=== PATIENT | male | born 1995 | race Caucasian/White ===

== ENCOUNTER 2020-08-11 18:53 | Emergency (ER) | payer BC ==
[2020-08-11 20:56] LABS: SARS-COV-2 RT PCR NEGATIVE (NEGATIVE)
--- NOTE | 2020-08-11 21:11 | RAD REPORT ---
EXAM DESCRIPTION: RAD - Chest Pa And Lat (2 Views) - 08/11/2020 8:24 pm CLINICAL HISTORY: Chest pain;Cough COMPARISON: None TECHNIQUE: Frontal and lateral views of the chest were obtained. FINDINGS: The lungs are hyperexpanded with flattened diaphragm and increased retrosternal space. Sca ttered fibrotic changes seen. No mass or acute infiltrates seen. Sarah are not outside of normal range . Heart size is normal and central vasculature is within normal limits. No pleural effusion or pne umothorax seen. No acute bony finding noted. No aortic abnormality. IMPRESSION: Hyper expanded lung mcneal with no acute cardiopulmonary finding.
[2020-08-11 21:54] LABS: Basophils % 0.9 % (0-1.3); Hematocrit 41.9 % (39.6-49.0); Lymphocytes % 34.4 % (15.3-44.8); RBC Red Blood Cell Count 4.55 M/uL (4.33-5.43)
[2020-08-11 22:07] LABS: Potassium 4.3 mmol/L (3.5-5.1)
[2020-08-11 22:16] LABS: Protime INR 1.05
--- NOTE | 2020-08-11 22:30 | EDPHYS ---
Physician Documentation [facility] Name: Harjit Berry Age: 25 yrs Sex: Male : 1995 Arrival Date: 08/11/2020 Time: 18:57 Bed 20 Private MD: ED Physician Chava Anderson HPI: 08/11 21:19 This 25 yrs old Male presents to ER via Ambulatory with complaints of Chest rn Pressure, cough up blood. 21:19 The patient or guardian reports chest pain that is located primarily in the anterior rn chest wall. The pain does not radiate. Associated signs and symptoms: Pertinent positives: cough, Pertinent negatives: abdominal pain, dizziness, headache, near syncope, palpitations, shortness of breath, syncope, vomiting. The chest pain is described as a pressure. Duration: The patient or guardian reports a single episode. Modifying factors: The symptoms are alleviated by nothing. the symptoms are aggravated by nothing. Severity of pain: At its worst the pain was moderate in the emergency department the pain has improved. The patient has not experienced similar symptoms in the past. The patient has not recently seen a physician. Reports just finished eating dinner, doesn't recall eating anything that he thinks could have irritated his throat, no choking episode, then coughed up phlegm with small amount of blood in it. + smoker. Now feels better, no sob. No hx of dvt/PE. No recent trauma. Doesn't feel ill, no fever. . 21:19 Took a nap in waiting room and states feels better, is hungry again.. rn Historical: - Allergies: 19:32 No Known Allergies; ca1 - Home Meds: 19:32 None [Active]; ca1 - PMHx: 19:32 None; ca1 - PSHx: 19:32 Tonsillectomy; ca1 - Immunization history:: Client reports having NOT received the Covid vaccine. Flu vaccine is not up to date. - Social history:: Smoking status: Patient reports the use of cigarette tobacco products, smokes one-half pack cigarettes per day. - Family history:: not pertinent. - Hospitalizations: : No recent hospitalization is reported. ROS: 21:19 Constitutional: Negative for fever, chills, and weight loss, Eyes: Negative for injury, rn pain, redness, and discharge, Neck: Negative for injury, pain, and swelling, Cardiovascular: Negative for palpitations, and edema, Respiratory: Negative for shortness of breath, wheezing, and pleuritic chest pain, Abdomen/GI: Negative for abdominal pain, nausea, vomiting, diarrhea, and constipation, Back: Negative for injury and pain, MS/Extremity: Negative for injury and deformity, Skin: Negative for injury, rash, and discoloration, Neuro: Negative for headache, weakness, numbness, tingling, and seizure. Exam: 21:19 Constitutional: This is a well developed, well nourished patient who is awake, alert, rn and in no acute distress. Head/Face: Normocephalic, atraumatic. Eyes: Periorbital areas with no swelling, redness, or edema. ENT: No stridor Cardiovascular: Regular rate and rhythm. No pulse deficits. Respiratory: Clear bilateral breath sounds. No increased work of breathing, no retractions or nasal flaring. Abdomen/GI: soft, non-tender Skin: Warm, dry with normal turgor. Normal color with no rashes, no lesions, and no evidence of cellulitis. MS/ Extremity: Pulses equal, no cyanosis. Neurovascular intact. Full, normal range of motion. Equal circumference. Neuro: Awake and alert, GCS 15 Vital Signs: 19:30 BP 117 / 67; Pulse 85; Resp 16 S; Temp 97.6(TE); Pulse Ox 100% on R/A; Weight 63.05 kg ca1 (R); Height 6 ft. 1 in. (185.42 cm) (R); Pain 3/10; 21:50 BP 121 / 70; Pulse 67; Resp 19; Pulse Ox 98% ; rr5 23:00 BP 118 / 79; Pulse 60; Resp 18; Pulse Ox 98% ; rr5 19:30 Body Mass Index 18.34 (63.05 kg, 185.42 cm) ca1 MDM: 21:08 Patient medically screened. rn 22:28 Differential diagnosis: chest wall pain, costochondritis, esophagitis, gastritis, rn gastroesophageal reflux disease (GERD), pulmonary embolus, esophageal irritation, smoking related problem. Data reviewed: vital signs, nurses notes, lab test result(s), EKG, radiologic studies, plain films, and as a result, I will discharge patient. Counseling: I had a detailed discussion with the patient and/or guardian regarding: the historical points, exam findings, and any diagnostic results supporting the discharge/admit diagnosis, lab results, radiology results, the need for outpatient follow up, to return to the emergency department if symptoms worsen or persist or if there are any questions or concerns that arise at home. Response to treatment: the patient's symptoms have markedly improved after treatment, and as a result, I will discharge patient. Special discussion: I discussed with the patient/guardian in detail that at this point there is no indication for admission to the hospital. It is understood, however, that if the symptoms persist or worsen the patient needs to return immediately for re-evaluation. ED course: D-dimer neg, no oxygen requirement, COVID/Flu neg, cxr no acute findings. Recommend smoking cessation and given return precautions. Will dc home.. 08/11 20:56 Order name: COVID-19/FLU A+B; Complete Time: 21:09 EDMS 08/11 21:19 Order name: CBC with Diff rn 08/11 21:19 Order name: Basic Metabolic Panel; Complete Time: 22:28 rn 08/11 21:19 Order name: Protime (+inr); Complete Time: 22:28 rn 08/11 19:35 Order name: EKG; Complete Time: 19:35 ca1 08/11 19:35 Order name: EKG - Nurse/Tech; Complete Time: 19:38 ca1 08/11 19:40 Order name: XRAY Chest Pa And Lat (2 Views); Complete Time: 21:18 rn 08/11 21:19 Order name: IV Start; Complete Time: 21:46 rn 08/11 21:19 Order name: Ptt, Activated; Complete Time: 22:28 rn 08/11 21:19 Order name: D-Dimer; Complete Time: 22:28 rn 08/11 22:09 Order name: Manual Differential EDMS Administered Medications: No medications were administered Disposition: 08/11/20 22:29 Discharged to Home. Impression: Chest pain, unspecified, Hemoptysis. - Condition is Stable. - Discharge Instructions: Nonspecific Chest Pain, Hemoptysis. - Medication Reconciliation Form, Thank You Letter, Antibiotic Education, Prescription Opioid Use form. - Follow up: Private Physician; When: As needed; Reason: Recheck today's complaints, Re-evaluation by your physician. - Problem is new. - Symptoms have improved. Signatures: Dispatcher [employer] EDMS Chava Anderson MD MD rn Santosh Rodriguez RN RN rr5 Minerva Clark RN RN ca1 Corrections: (The following items were deleted from the chart) 20:11 19:42 Influenza Screen (A \T\ B)+BA.LAB.BRZ ordered. EDMS EDMS 20:12 19:42 CORONAVIRUS+MR.LAB.BRZ ordered. EDAL EDMS 23:16 22:29 08/11/2020 22:29 Discharged to Home. Impression: Chest pain, unspecified; rr5 Hemoptysis. Condition is Stable. Forms are Medication Reconciliation Form, Thank You Letter, Antibiotic Education, Prescription Opioid Use. Follow up: Private Physician; When: As needed; Reason: Recheck today's complaints, Re-evaluation by your physician. Problem is new. Symptoms have improved. rn
--- NOTE | 2020-08-11 22:30 | ER ---
Nurse's Notes [facility] Name: Harjit Berry Age: 25 yrs Sex: Male : 1995 Arrival Date: 08/11/2020 Time: 18:57 Bed 20 Private MD: Diagnosis: Chest pain, unspecified;Hemoptysis Presentation: 08/11 19:30 Chief complaint: Patient states: After dinner tonight, around 20 - 30 minutes ago, I ca1 felt nauseated and then kind of cough up a ball of phlegm with blood. Then my chest got tight. Reports cough started last night. Coronavirus screen: Client denies travel out of the [place] in the last 14 days. cough unrelated to allergies, Client presents with at least one sign or symptom that may indicate coronavirus-19. Standard/surgical mask placed on the client. Provider contacted for isolation considerations. Ebola Screen: Patient negative for fever greater than or equal to 101.5 degrees Fahrenheit, and additional compatible Ebola Virus Disease symptoms Patient denies exposure to infectious person. Patient denies travel to an Ebola-affected area in the 21 days before illness onset. No symptoms or risks identified at this time. Initial Sepsis Screen: Does the patient meet any 2 criteria? No. Patient's initial sepsis screen is negative. Does the patient have a suspected source of infection? No. Patient's initial sepsis screen is negative. Risk Assessment: Do you want to hurt yourself or someone else? Patient reports no desire to harm self or others. Onset of symptoms was August 11, 2020. 19:30 Method Of Arrival: Ambulatory ca1 19:30 Acuity: JOSEPHINE 3 ca1 Historical: - Allergies: 19:32 No Known Allergies; ca1 - Home Meds: 19:32 None [Active]; ca1 - PMHx: 19:32 None; ca1 - PSHx: 19:32 Tonsillectomy; ca1 - Immunization history:: Client reports having NOT received the Covid vaccine. Flu vaccine is not up to date. - Social history:: Smoking status: Patient reports the use of cigarette tobacco products, smokes one-half pack cigarettes per day. - Family history:: not pertinent. - Hospitalizations: : No recent hospitalization is reported. Screenin:50 Abuse screen: Denies threats or abuse. Denies injuries from another. Nutritional rr5 screening: No deficits noted. Tuberculosis screening: No symptoms or risk factors identified. Fall Risk IV access (20 points). Total Torrez Fall Scale indicates No Risk (0-24 pts). Assessment: 21:30 General: Appears in no apparent distress. comfortable, Behavior is calm, cooperative, rr5 appropriate for age. 21:30 Pain: Complains of pain in chest Pain does not radiate. Pain currently is 1 out of 10 rr5 on a pain scale. Quality of pain is described as pressure, Pain began suddenly, Is intermittent. Neuro: Level of Consciousness is awake, alert, obeys commands, Oriented to person, place, time, situation. Cardiovascular: Reports chest pain, Capillary refill < 3 seconds Patient's skin is warm and dry. Respiratory: Reports shortness of breath cough that is Airway is patent Respiratory effort is even, unlabored, Respiratory pattern is regular, symmetrical. GI: Abdomen is flat, Reports vomiting. : No signs and/or symptoms were reported regarding the genitourinary system. EENT: No signs and/or symptoms were reported regarding the EENT system. Derm: Skin is intact, is healthy with good turgor, Skin temperature is warm. 22:30 Reassessment: Patient appears in no apparent distress at this time. Patient and/or rr5 family updated on plan of care and expected duration. Pain level reassessed. Patient is alert, oriented x 3, equal unlabored respirations, skin warm/dry/pink. 23:15 Reassessment: Patient appears in no apparent distress at this time. Patient is alert, rr5 oriented x 3, equal unlabored respirations, skin warm/dry/pink. discharge instruction given and explained without complaints made Patient states feeling better. Patient states symptoms have improved. Vital Signs: 19:30 BP 117 / 67; Pulse 85; Resp 16 S; Temp 97.6(TE); Pulse Ox 100% on R/A; Weight 63.05 kg ca1 (R); Height 6 ft. 1 in. (185.42 cm) (R); Pain 3/10; 21:50 BP 121 / 70; Pulse 67; Resp 19; Pulse Ox 98% ; rr5 23:00 BP 118 / 79; Pulse 60; Resp 18; Pulse Ox 98% ; rr5 19:30 Body Mass Index 18.34 (63.05 kg, 185.42 cm) ca1 ED Course: 18:57 Patient arrived in ED. as 19:32 Triage completed. ca1 19:32 Arm band placed on right wrist. ca1 20:21 XRAY Chest Pa And Lat (2 Views) In Process Unspecified. EDMS 21:08 Chava Anderson MD is Attending Physician. rn 21:25 Santosh Rodriguez, RN is Primary Nurse. rr5 21:40 Inserted saline lock: 20 gauge in right forearm, using aseptic technique. rr5 21:46 Inserted saline lock: 20 gauge in left antecubital area, using aseptic technique. Blood rr5 collected. 21:50 Patient has correct armband on for positive identification. Bed in low position. Call rr5 light in reach. multi line claims adjuster on. Pulse ox on. NIBP on. 23:15 No provider procedures requiring assistance completed. IV discontinued, intact, rr5 bleeding controlled, No redness/swelling at site. Pressure dressing applied. 23:15 Patient maintains SpO2 saturation greater than 95% on room air. rr5 Administered Medications: No medications were administered Outcome: 22:29 Discharge ordered by . rn 23:15 Discharged to home ambulatory, with family. rr5 23:15 Condition: stable 23:15 Discharge instructions given to patient, Instructed on discharge instructions, follow up and referral plans. Demonstrated understanding of instructions, follow-up care. 23:16 Patient left the ED. rr5 Signatures: Dispatcher [employer] MARIAHWV Nina Goodman Roman, MD MD rn Roque, Raymond, RN RN rr5 Minerva Clark RN RN ca1
[2020-08-11 22:51] LABS: Blood Morphology Comment NOT SEEN (NOT SEEN); Platelet Estimate ADEQ
[2020-08-11 23:29] VITALS: TEMP 97.6
[2020-08-11 23:30] VITALS: BP 121/70; O2SAT 98
--- NOTE | 2020-08-12 07:51 | EKG ---
Test Date: 2020-08-11 Test Time: 19:38:33 Application Analyst: AMAYA MEASUREMENT RESULTS: Intervals: Rate: 84 CT: 122 QRSD: 86 QT: 356 QTc: 420 [place]: P: 86 CT: 122 QRS: 98 T: 94 INTERPRETIVE STATEMENTS: Normal sinus rhythm Rightward axis Borderline ECG No previous ECG available for comparison Electronically Signed On 08-12-20 07:50:25 CDT by Prasanna Herrera
== END 2020-08-11 23:16 | disposition home or self-care (01) ==
LOC: ER 18:53
DX: R04.2 Hemoptysis (principal); F17.210 Nicotine dependence, cigarettes, uncomplicated; Z20.822 Contact with and (suspected) exposure to COVID-19
CPT/HCPCS: 85025; 80048; 36415; 85610; 85379; 85730; 0240U; 71046; 93005; 99285